=== PATIENT | male | born 1985 | race Caucasian/White ===

== ENCOUNTER 2024-03-20 18:01 | Emergency (ER) | payer MEDICAID ==
[~2024-03-20] VITALS: Ht 188 cm; Wt 81.8 kg
[2024-03-20 19:28] VITALS: TEMP 98.5
[2024-03-20 19:45] VITALS: BP 134/88; PULSE 89; RESP 15; O2SAT 99
== END 2024-03-20 21:18 | disposition left against medical advice (07) ==
LOC: EMS 18:01
DX: F10.129 Alcohol abuse with intoxication, unspecified (principal); Z53.21 Procedure and treatment not carried out due to patient leaving prior to being seen by health care provider